=== PATIENT | female | born 1995 | race Caucasian/White ===

== ENCOUNTER 2017-08-19 17:29 | Emergency (ER) | payer SELFPAY ==
[~2017-08-19] VITALS: Ht 177.8 cm; Wt 90.7 kg
[2017-08-19] MEDS ORDERED: ARIP10TA9 PO (17:37)
[2017-08-19] MEDS ORDERED: HYDROCODONE/APAP 5-325MG TABLET ONE (18:01)
[2017-08-19] MEDS ORDERED: SILVER SULFADIAZINE 1% CREAM 25 GM TUBE TP ONE (18:01)
[2017-08-19] MEDS ORDERED: TDAP DIPH,PERTUSS,TET VAC/PF 0.5 ML DISP.SYRIN IM ONE (18:02)
[2017-08-19] MEDS: TDAP DIPH,PERTUSS,TET VAC/PF 0.5 ML DISP.SYRIN IM ONE (18:18)
[2017-08-19] MEDS: HYDROCODONE/APAP 5-325MG TABLET PO ONE (18:18)
[2017-08-19] MEDS: SILVER SULFADIAZINE 1% CREAM 50 GM TP ONE (18:19)
--- NOTE | 2017-08-19 18:27 | NUR ---
PATIENT WAS SEEN BY MD FOR GUY ON HAND, FOOT AND KNEE AREA FROM HOT OIL IN THE KITCHEN AT WORK. THE RIGHT FOOT AREA HAS A BLISTER. AREA CLEANSED AND SILVADENE CREAM APPLIED ORDERED. DC, RX, WOUND CARE AND FOLLOW UP INSTRUCTIONS GIVEN AND EXPLAINED TO PATIENT WHO STATES SHE UNDERSTANDS ALL INSTRUCTIONS.
== END 2017-08-19 18:37 | disposition home or self-care (01) ==
LOC: ER 17:30
DX: T23.201A Burn of second degree of right hand, unspecified site, initial encounter (principal); T24.221A Burn of second degree of right knee, initial encounter; Z88.8 Allergy status to other drugs, medicaments and biological substances; Z79.899 Other long term (current) drug therapy; X12.XXXA Contact with other hot fluids, initial encounter; Y93.89 Activity, other specified; Y92.89 Other specified places as the place of occurrence of the external cause; Y99.8 Other external cause status
CPT/HCPCS: 16000; 90471; 90715; 99284; A4663